=== PATIENT | female | born 1950 | race Caucasian/White ===

== ENCOUNTER → 2016-08-19 | Outpatient (CLI) | payer OTHER ==
[2016-08-19 18:45] LABS: BASO % 0.8 % (0.0-1.0); EOS # 0.1 K/mm3 (0.0-0.50); EOS % 2.3 % (0.0-3.0); LYMPH # 0.6 K/mm3 (1.5-4.5); LYMPH % 14.1 % (24.0-44.0); MEAN CORPUSCULAR HEMOGLOBIN 28.2 pg (27.0-33.0); MEAN CORPUSCULAR HGB CONC 32.6 g/dl (32.0-36.5); MEAN CORPUSCULAR VOLUME 86.7 fl (80.0-96.0); MONO # 0.4 K/mm3 (0.0-0.8); MONO % 10.4 % (0.0-5.0); NEUTROPHILS # 2.8 K/mm3 (1.8-7.7); NEUTROPHILS % 71.4 % (36.0-66.0); PLATELET COUNT, AUTOMATED 304 k/mm3 (150-450); WHITE BLOOD COUNT 3.9 K/mm3 (4.0-10.0)
== END ==
LOC: M WUC 14:43
PROVIDERS: ATTEND Physician Assistant
DX: R50.9 Fever, unspecified (principal); J06.9 Acute upper respiratory infection, unspecified

== ENCOUNTER → 2017-08-22 | Outpatient (REF) | payer OTHER | LOC: M LAB REF 13:18 | DX: N39.0 Urinary tract infection, site not specified (principal) ==

== ENCOUNTER → 2018-10-08 | Outpatient (CLI) | payer MEDICARE ==
--- NOTE | 2018-10-09 09:29 | REP ---
Right rib series: Five views including PA chest. History: Right posterior rib pain after a fall. No comparison radiographs. Findings: PA chest radiograph shows no evidence of pneumothorax or hydrothorax. Mediastinum is not widened. The aorta slightly tortuous. The heart is not enlarged. There is mild bibasilar linear fibrosis. No infiltrate or contusion is seen. There is a mild levoconvex lumbar curvature. Multiple views of the right ribcage show no visible rib fracture or bony destructive lesion. Impression: Negative right rib radiographs. Mild bibasilar linear fibrosis. Otherwise no acute disease. Electronically Signed by Cesar Sherman MD 10/08/2018 10:40 A
== END ==
LOC: M WUC 10:12
PROVIDERS: ATTEND Physician Assistant
DX: S20.221A Contusion of right back wall of thorax, initial encounter (principal); W18.30XA Fall on same level, unspecified, initial encounter; Y92.009 Unspecified place in unspecified non-institutional (private) residence as the place of occurrence of the external cause

== ENCOUNTER → 2019-12-10 | Outpatient (CLI) | payer MEDICARE ==
[2019-12-10 17:12] LABS: BASO # 0.1 10^3/uL (0.0-0.2); EOS # 0.1 10^3/uL (0.0-0.5); EOS % 2.7 % (0.0-3.0); HEMATOCRIT 43.4 % (36.0-47.0); HEMOGLOBIN 13.7 g/dl (12.0-15.5); LYMPH # 1.1 10^3/uL (1.5-5.0); LYMPH % 22.4 % (24.0-44.0); MEAN CORPUSCULAR HEMOGLOBIN 27.1 pg (27.0-33.0); MEAN CORPUSCULAR HGB CONC 31.6 g/dl (32.0-36.5); MEAN CORPUSCULAR VOLUME 85.8 fl (80.0-96.0); MONO # 0.4 10^3/uL (0.0-0.8); MONO % 7.3 % (0.0-5.0); NEUTROPHILS # 3.2 10^3/uL (1.5-8.5); NEUTROPHILS % 66.2 % (36.0-66.0); PLATELET COUNT, AUTOMATED 332 10^3/uL (150-450); RED BLOOD COUNT 5.06 10^6/uL (4.00-5.40); WHITE BLOOD COUNT 4.9 10^3/uL (4.0-10.0)
[2019-12-10 17:39] LABS: ALBUMIN 3.7 GM/DL (3.2-5.2); BILIRUBIN,TOTAL 0.3 MG/DL (0.2-1.0); CALCIUM LEVEL 9.1 MG/DL (8.8-10.2); GLOMERULAR FILTRATION RATE 58.9 (>45); POTASSIUM SERUM 4.2 MEQ/L (3.5-5.1)
== END ==
LOC: M WUC 10:56
PROVIDERS: ATTEND Physician Assistant
DX: L29.8 Other pruritus (principal)

== ENCOUNTER → 2020-05-07 | Outpatient (CLI) | payer MEDICARE ==
--- NOTE | 2020-05-07 14:23 | REP ---
INDICATION: LOW ABDOMEN PAIN, ANKLE PAIN. COMPARISON: None. TECHNIQUE: KUB: Two views presented. FINDINGS: The bowel gas pattern is normal with air and stool in a nondistended proximal and distal colon. No large or small bowel dilation is seen. Flank stripes and psoas margins are intact. No mass, organomegaly or pathologic calcification is seen. There are degenerative disc changes at L4-5 and osteoarthritic facet changes are seen at L5-S1 and L4-5 in the lumbar spine. IMPRESSION: Normal bowel gas pattern. <Electronically signed by Pierre Sherman > 05/07/20 [id number]
--- NOTE | 2020-05-07 14:25 | REP ---
INDICATION: ANKLE PAIN. COMPARISON: None. TECHNIQUE: Four views. FINDINGS: Four views of the left ankle demonstrate intact ankle mortise. There are well corticated accessory ossicles adjacent to the medial malleolus. In addition, there is are are soft tissue ossicles along the course of the Achilles tendon and there is Achilles calcaneal spurring. These changes are consistent with chronic Achilles tendinitis tendinosis. There is also some soft tissue swelling in the pre Achilles fat. Question acute tendinopathy. There is plantar calcaneal spurring as well. Midfoot osteoarthritic spurring is seen moderate in degree. No fracture is noted. 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 Achilles and plantar calcaneal spurring is noted. Soft tissue swelling and soft tissue ossification along the course of the Achilles tendon. Question acute and/or chronic Achilles tendinopathy. This should be correlated with clinical signs and symptoms. <Electronically signed by Pierre Sherman > 05/07/20 [id number]
== END ==
LOC: M WUC 13:33
PROVIDERS: ATTEND Nurse Practitioner Family
DX: R10.30 Lower abdominal pain, unspecified (principal); M25.572 Pain in left ankle and joints of left foot

== ENCOUNTER 2020-07-26 13:19 | Emergency (ER) | payer MEDICARE ==
[~2020-07-26] VITALS: Ht 172.7 cm; Wt 99.4 kg
[2020-07-26] MEDS ORDERED: ROSU20TA5 (13:35)
[2020-07-26] MEDS ORDERED: VENL150C43 (13:35)
[2020-07-26] MEDS ORDERED: LR 1,000 ML IV ONE (14:00)
[2020-07-26 14:27] LABS: BASO % 0.3 % (0.0-1.0); EOS % 0.8 % (0.0-3.0); HEMATOCRIT 45.5 % (36.0-47.0); HEMOGLOBIN 14.1 g/dl (12.0-15.5); LYMPH # 0.8 10^3/uL (1.5-5.0); LYMPH % 21.1 % (24.0-44.0); MEAN CORPUSCULAR HEMOGLOBIN 26.2 pg (27.0-33.0); MEAN CORPUSCULAR VOLUME 84.4 fl (80.0-96.0); MONO # 0.4 10^3/uL (0.0-0.8); MONO % 11.2 % (0.0-5.0); NEUTROPHILS # 2.6 10^3/uL (1.5-8.5); NEUTROPHILS % 66.3 % (36.0-66.0); PLATELET COUNT, AUTOMATED 248 10^3/uL (150-450); RED BLOOD COUNT 5.39 10^6/uL (4.00-5.40); WHITE BLOOD COUNT 3.9 10^3/uL (4.0-10.0)
[2020-07-26 14:59] LABS: ALBUMIN 3.8 GM/DL (3.2-5.2); BILIRUBIN,TOTAL 0.3 MG/DL (0.2-1.0); CALCIUM LEVEL 9.2 MG/DL (8.8-10.2); CREATININE FOR GFR 1.12 MG/DL (0.55-1.30); GLOMERULAR FILTRATION RATE 51.7 (>45); MAGNESIUM LEVEL 1.9 MG/DL (1.8-2.4); TOTAL PROTEIN 7.6 GM/DL (6.4-8.2)
[2020-07-26 16:30] VITALS: BP 155/82
== END 2020-07-26 16:32 | disposition home or self-care (01) ==
LOC: M ED 13:19
DX: E86.0 Dehydration (principal); U07.1 COVID-19; E78.5 Hyperlipidemia, unspecified; Z79.899 Other long term (current) drug therapy

== ENCOUNTER → 2020-12-02 | Outpatient (REF) | payer MEDICARE ==
[~2020-12-02] MED LIST: ROSU20TA5; VENL150C43
== END ==
LOC: M WUC 14:35
PROVIDERS: ATTEND Physician Assistant
DX: R30.0 Dysuria (principal)

== ENCOUNTER → 2020-12-03 | Outpatient (REF) | payer MEDICARE | LOC: M LAB REF 19:15 | PROVIDERS: ATTEND Physician Assistant | DX: N39.0 Urinary tract infection, site not specified (principal) ==

== ENCOUNTER 2020-12-08 11:02 | Emergency (ER) | payer MEDICARE ==
[~2020-12-08] VITALS: Ht 172.7 cm; Wt 95.0 kg
[2020-12-08] MEDS ORDERED: NS 1,000 ML IV SCH (13:25)
--- NOTE | 2020-12-08 14:14 | REP ---
INDICATION: FATIGUE COMPARISON: None. TECHNIQUE: PA/Lateral FINDINGS: Lungs: Clear, no infiltrate. Heart: Normal in size. Mediastinum: Mediastinal silhouette unremarkable. Pleural angles: Unremarkable.. Bones and soft tissues: Unremarkable. IMPRESSION: No acute pulmonary disease. <Electronically signed by Jean-Pierre Logan > 12/08/20 [id number]
[2020-12-08 14:19] LABS: BASO # 0.1 10^3/uL (0.0-0.2); BASO % 0.7 % (0.0-1.0); EOS % 0.4 % (0.0-3.0); HEMATOCRIT 42.9 % (36.0-47.0); HEMOGLOBIN 13.5 g/dl (12.0-15.5); LYMPH % 11.8 % (24.0-44.0); MEAN CORPUSCULAR HEMOGLOBIN 26.1 pg (27.0-33.0); MEAN CORPUSCULAR HGB CONC 31.5 g/dl (32.0-36.5); MONO # 0.8 10^3/uL (0.0-0.8); MONO % 10.1 % (2.0-8.0); NEUTROPHILS # 6.3 10^3/uL (1.5-8.5); NEUTROPHILS % 75.9 % (36.0-66.0); PLATELET COUNT, AUTOMATED 533 10^3/uL (150-450); RED BLOOD COUNT 5.17 10^6/uL (4.00-5.40); WHITE BLOOD COUNT 8.3 10^3/uL (4.0-10.0)
[2020-12-08 14:45] LABS: ALBUMIN 3.1 GM/DL (3.2-5.2); ALT/SGPT 56 U/L (12-78); BILIRUBIN,DIRECT 0.1 MG/DL (0.0-0.2); BILIRUBIN,TOTAL 0.3 MG/DL (0.2-1.0); BLOOD UREA NITROGEN 13 MG/DL (7-18); CALCIUM LEVEL 9.5 MG/DL (8.8-10.2); CARBON DIOXIDE LEVEL 28 MEQ/L (21-32); CHLORIDE LEVEL 103 MEQ/L (98-107); CK-MB VALUE MASS < 1.0 NG/ML (<3.6); CPK CREATINE PHOSPHOKINASE 27 U/L (26-192); CREATININE FOR GFR 0.87 MG/DL (0.55-1.30); GLOMERULAR FILTRATION RATE > 60.0 (>45); GLUCOSE, FASTING 106 MG/DL (70-100); NT-PRO BNP 77 PG/ML (<125); POTASSIUM SERUM 3.7 MEQ/L (3.5-5.1); SODIUM LEVEL 139 MEQ/L (136-145); TOTAL PROTEIN 7.8 GM/DL (6.4-8.2); TROPONIN I < 0.02 NG/ML (< 0.10)
[2020-12-08 14:46] LABS: FREE T4 1.59 NG/DL (0.76-1.46); LIPASE 79 U/L (73-393); THYROID STIMULATING HORMONE 0.702 uIU/ML (0.358-3.740)
--- NOTE | 2020-12-08 17:06 | ECGEPIP ---
[facility] - ED Test Date: 2020-12-08 Pat Name: BRUCE SAMS Department: Room: - Gender: Female [employer]: : 1950 Requested By: Cailin Brooks PA-C Order Number: [id number] Reading MD: Hannah Harris Measurements Intervals [place] Rate: 92 P: 31 WV: 160 QRS: -2 QRSD: 80 T: 34 QT: 370 QTc: 457 Interpretive Statements Normal sinus rhythm Inferior infarct , age undetermined NSTTW abnormalities No prior Electronically Signed on 12-08-2020 17:06:04 EDT by Hannah Harris
[2020-12-08 17:15] VITALS: BP 150/78
== END 2020-12-08 17:29 | disposition home or self-care (01) ==
LOC: M ED 11:02
DX: R63.0 Anorexia (principal); R19.7 Diarrhea, unspecified; R53.83 Other fatigue; D47.3 Essential (hemorrhagic) thrombocythemia; R74.8 Abnormal levels of other serum enzymes; R94.31 Abnormal electrocardiogram [ECG] [EKG]; R03.0 Elevated blood-pressure reading, without diagnosis of hypertension; R63.4 Abnormal weight loss; F41.9 Anxiety disorder, unspecified; F33.9 Major depressive disorder, recurrent, unspecified

== ENCOUNTER → 2021-02-10 | Outpatient (REF) | payer MEDICARE | LOC: M WUC 15:39 | PROVIDERS: ATTEND Physician Assistant | DX: R30.0 Dysuria (principal) ==

== ENCOUNTER → 2022-03-10 | Outpatient (REF) | payer MEDICARE | LOC: M WUC 16:09 | PROVIDERS: ATTEND Physician Assistant | DX: N39.0 Urinary tract infection, site not specified (principal) ==

== ENCOUNTER → 2022-03-15 | Outpatient (REF) | payer MEDICARE | LOC: M LAB REF 14:36 | PROVIDERS: ATTEND Physician Assistant | DX: R31.9 Hematuria, unspecified (principal) ==

== ENCOUNTER → 2023-10-20 | Outpatient (CLI) | payer MEDICARE ==
[~2023-10-20] MED LIST changes: -ROSU20TA5; +ROSU20TA61
[2023-10-20 16:00] LABS: ALBUMIN 3.6 G/DL (3.2-5.2); BILIRUBIN,TOTAL 0.6 MG/DL (0.3-1.2); CALCIUM LEVEL 9.9 MG/DL (8.3-10.6); GLOMERULAR FILTRATION RATE 58.2 (>39); POTASSIUM SERUM 4.2 MMOL/L (3.5-5.1); THYROID STIMULATING HORMONE 1.256 uIU/ML (0.55-4.78); TOTAL PROTEIN 6.8 G/DL (5.7-8.2)
[2023-10-20 16:01] LABS: FOLATE 4.5 NG/ML (>5.4)
[2023-10-20 16:12] LABS: BASO # 0.1 10^3/uL (0.0-0.2); BASO % 0.8 % (0.0-1.0); EOS # 0.1 10^3/uL (0.0-0.5); HEMATOCRIT 42.7 % (36.0-47.0); HEMOGLOBIN 13.9 g/dl (12.0-15.5); LYMPH # 1.2 10^3/uL (1.5-5.0); LYMPH % 15.4 % (24.0-44.0); MEAN CORPUSCULAR HEMOGLOBIN 28.6 pg (27.0-33.0); MEAN CORPUSCULAR HGB CONC 32.6 g/dl (32.0-36.5); MEAN CORPUSCULAR VOLUME 87.9 fl (80.0-96.0); MONO # 0.6 10^3/uL (0.0-0.8); MONO % 8.4 % (2.0-8.0); NEUTROPHILS # 5.7 10^3/uL (1.5-8.5); NEUTROPHILS % 74.1 % (36.0-66.0); PLATELET COUNT, AUTOMATED 395 10^3/uL (150-450); RED BLOOD COUNT 4.86 10^6/uL (4.00-5.40); WHITE BLOOD COUNT 7.6 10^3/uL (4.0-10.0)
== END ==
LOC: M PLALAB 11:31
PROVIDERS: ATTEND Psychiatry & Neurology Neurology
DX: E53.8 Deficiency of other specified B group vitamins (principal); E03.9 Hypothyroidism, unspecified

== ENCOUNTER → 2024-02-27 | Outpatient (REF) | payer MEDICARE | LOC: M LAB REF 13:11 | PROVIDERS: ATTEND Physician Assistant | DX: N30.00 Acute cystitis without hematuria (principal) ==

== ENCOUNTER → 2024-09-06 | Outpatient (REF) | payer MEDICARE ==
[~2024-09-06] MED LIST changes: -ROSU20TA61; +ROSU20TA86
== END ==
LOC: M LAB REF 12:23
PROVIDERS: ATTEND Student in an Organized Health Care Education/Training Program
DX: R30.0 Dysuria (principal)

== ENCOUNTER → 2024-09-12 | Outpatient (REF) | payer MEDICARE | LOC: M LAB REF 12:08 | PROVIDERS: ATTEND Nurse Practitioner Family | DX: R30.0 Dysuria (principal) ==